=== PATIENT | male | born 1995 | race Caucasian/White ===

== ENCOUNTER 2020-05-02 09:26 | Emergency (ER) | payer OTHER, SELFPAY ==
[~2020-05-02] VITALS: Ht 172.7 cm; Wt 108.2 kg
[2020-05-02] MEDS ORDERED: ACETAMINOPHEN 500 MG TAB PO ONE (10:00)
[2020-05-02 10:19] VITALS: BP 131/81
--- NOTE | 2020-05-02 10:22 | REP ---
Right foot series: Four views. History: Midfoot pain. Third and fourth toe. Crush injury. Findings: Four views of the right foot demonstrate overall normal mineralization. The DIP joints of the third and fourth toes and fifth toes are developmentally fused. No fracture or subluxation is seen in the phalanges or metatarsals. No tarsal fracture is seen. Impression: No acute bony abnormality. Electronically Signed by Aime Stanton MD 05/02/2020 10:13 A
== END 2020-05-02 10:30 | disposition home or self-care (01) ==
LOC: M ED 09:26
DX: S90.31XA Contusion of right foot, initial encounter (principal); W20.8XXA Other cause of strike by thrown, projected or falling object, initial encounter; Y92.9 Unspecified place or not applicable; Y93.9 Activity, unspecified; Y99.0 Civilian activity done for income or pay; J45.909 Unspecified asthma, uncomplicated

== ENCOUNTER 2020-07-27 08:30 | Emergency (ER) | payer OTHER, SELFPAY ==
[~2020-07-27] VITALS: Ht 175.3 cm; Wt 109.8 kg
[2020-07-27 08:30] VITALS: BP 142/74
[2020-07-27] MEDS ORDERED: CYCL-707 PO (08:45)
[2020-07-27] MEDS ORDERED: NAPR-837 PO (08:45)
== END 2020-07-27 09:01 | disposition home or self-care (01) ==
LOC: M ED 08:30
DX: M62.830 Muscle spasm of back (principal)

== ENCOUNTER → 2022-08-26 | Outpatient (REF) ==
[~2022-08-26] MED LIST: CYCL-707 PO; NAPR-837 PO
[2022-08-27 09:08] LABS: HERPES ZOSTER, VARICELLA IgG <135 index (Immune >165); RUBEOLA IgG ANTIBODY >300.0 AU/mL (Immune >16.4)
== END ==
LOC: M LAB 09:31
PROVIDERS: ATTEND Nurse Practitioner Adult Health
DX: Z02.1 Encounter for pre-employment examination (principal)

== ENCOUNTER → 2022-11-06 | Outpatient (REF) ==
[2022-11-06 13:47] LABS: RSV AMPLIFICATION NEGATIVE (NEGATIVE)
== END ==
LOC: M LABSMTC 09:55
PROVIDERS: ATTEND Family Medicine
DX: Z20.818 Contact with and (suspected) exposure to other bacterial communicable diseases (principal)

== ENCOUNTER 2022-12-21 20:21 | Emergency (ER) | payer OTHER, SELFPAY ==
[~2022-12-21] VITALS: Ht 175.3 cm; Wt 119.6 kg
[2022-12-21 20:21] VITALS: BP 143/84
[2022-12-21] MEDS ORDERED: CEPH500C PO (21:44)
[2022-12-21] MEDS ORDERED: CEPHALEXIN 500 MG CAP PO ONE (21:45)
[2022-12-21 22:43] LABS: RSV AMPLIFICATION NEGATIVE (NEGATIVE)
== END 2022-12-21 22:11 | disposition home or self-care (01) ==
LOC: M ED 20:21
DX: J02.0 Streptococcal pharyngitis (principal); Z79.2 Long term (current) use of antibiotics

== ENCOUNTER 2023-02-04 09:36 | Emergency (ER) | payer MEDICAID ==
[~2023-02-04] VITALS: Ht 172.7 cm; Wt 121.3 kg
[~2023-02-04 09:36] MED LIST changes: +CEPH500C PO
[2023-02-04] MEDS ORDERED: CEPH500C PO (11:41)
[2023-02-04 11:50] VITALS: BP 161/101
== END 2023-02-04 11:52 | disposition home or self-care (01) ==
LOC: M ED 09:36
DX: J02.0 Streptococcal pharyngitis (principal)

== ENCOUNTER → 2023-07-03 | Outpatient (REF) | payer OTHER, MEDICAID ==
[2023-07-03 12:33] LABS: ALBUMIN 4.2 G/DL (3.2-5.2); ALKALINE PHOSPHATASE 65 U/L (46-116); ALT/SGPT 57 U/L (7.0-40); AST/SGOT 28 U/L (<34); BILIRUBIN,TOTAL 0.5 MG/DL (0.3-1.2); BLOOD UREA NITROGEN 13 MG/DL (9-23); CARBON DIOXIDE LEVEL 27 MMOL/L (20-31); CHLORIDE LEVEL 105 MMOL/L (98-107); CHOLESTEROL LEVEL 169 MG/DL (<200); CHOLESTEROL RISK RATIO 3.85 (<5); CREATININE FOR GFR 0.86 MG/DL (0.70-1.30); GLOMERULAR FILTRATION RATE > 60.0 (>60); GLUCOSE, FASTING 84 MG/DL (60-100); HDL CHOLESTEROL 43.8 MG/DL (>40); NON-HDL-C 125.2 MG/DL; SODIUM LEVEL 142 MMOL/L (136-145); TOTAL PROTEIN 7.1 G/DL (5.7-8.2); TRIGLYCERIDES LEVEL 171 MG/DL (<150)
[2023-07-03 12:38] LABS: THYROID STIMULATING HORMONE 1.831 uIU/ML (0.55-4.78)
[2023-07-03 13:03] LABS: HIV 1&2 SCREEN NEGATIVE (NEGATIVE)
== END ==
LOC: M LAB REF 11:36
PROVIDERS: ATTEND Family Medicine Addiction Medicine
DX: Z68.41 Body mass index [BMI] 40.0-44.9, adult (principal)

== ENCOUNTER → 2023-09-10 | Outpatient (REF) | LOC: M EMP 14:43 | PROVIDERS: ATTEND Family Medicine | DX: Z11.52 Encounter for screening for COVID-19 (principal) ==

== ENCOUNTER 2023-11-24 16:08 | Emergency (ER) | payer OTHER, MEDICAID ==
[~2023-11-24] VITALS: Ht 175.3 cm; Wt 122.9 kg
[2023-11-24] MEDS ORDERED: BUPR150T12 (16:25)
[2023-11-24 17:17] LABS: RSV AMPLIFICATION NEGATIVE (NEGATIVE)
[2023-11-25 00:41] VITALS: BP 144/73; TEMP 99.4; O2SAT 99
== END 2023-11-25 00:58 | disposition left against medical advice (07) ==
LOC: M ED 16:08
DX: Z53.21 Procedure and treatment not carried out due to patient leaving prior to being seen by health care provider (principal)

== ENCOUNTER 2023-12-21 15:48 | Emergency (ER) | payer MEDICAID, OTHER ==
[~2023-12-21] VITALS: Ht 175.3 cm; Wt 122.9 kg
[~2023-12-21 15:48] MED LIST changes: +BUPR150T12
[2023-12-21 22:18] VITALS: BP 172/99; TEMP 97.4; O2SAT 99
== END 2023-12-21 22:22 | disposition home or self-care (01) ==
LOC: M ED 15:48
DX: G56.02 Carpal tunnel syndrome, left upper limb (principal); M25.532 Pain in left wrist; J45.909 Unspecified asthma, uncomplicated; Y92.9 Unspecified place or not applicable; Y93.89 Activity, other specified; Y99.9 Unspecified external cause status; Z79.899 Other long term (current) drug therapy

== ENCOUNTER 2024-08-19 19:15 | Emergency (ER) | payer OTHER ==
[2024-08-19 20:12] LABS: BASO % 0.5 % (0.0-1.0); EOS # 0.3 10^3/uL (0.0-0.5); EOS % 4.2 % (0.0-3.0); HEMATOCRIT 40.5 % (42.0-52.0); HEMOGLOBIN 14.2 g/dl (13.5-17.5); LYMPH # 1.7 10^3/uL (1.5-5.0); LYMPH % 25.7 % (24.0-44.0); MEAN CORPUSCULAR HEMOGLOBIN 31.3 pg (27.0-33.0); MEAN CORPUSCULAR HGB CONC 35.1 g/dl (32.0-36.5); MEAN CORPUSCULAR VOLUME 89.2 fl (80.0-96.0); MONO # 1.2 10^3/uL (0.0-0.8); MONO % 18.5 % (2.0-8.0); NEUTROPHILS # 3.3 10^3/uL (1.5-8.5); NEUTROPHILS % 50.5 % (36.0-66.0); PLATELET COUNT, AUTOMATED 206 10^3/uL (150-450); RED BLOOD COUNT 4.54 10^6/uL (4.30-6.10); WHITE BLOOD COUNT 6.5 10^3/uL (4.0-10.0)
[2024-08-19 20:36] LABS: LIPASE 110 U/L (12-53)
[2024-08-19 21:31] LABS: ALBUMIN 3.8 G/DL (3.2-5.2); ALKALINE PHOSPHATASE 75 U/L (46-116); ALT/SGPT 77 U/L (7.0-40); AST/SGOT 58 U/L (<34); BILIRUBIN,DIRECT 0.2 MG/DL (<0.4); BLOOD UREA NITROGEN 11 MG/DL (9-23); CALCIUM LEVEL 9.5 MG/DL (8.5-10.1); CARBON DIOXIDE LEVEL 28 MMOL/L (20-31); CHLORIDE LEVEL 107 MMOL/L (98-107); CREATININE FOR GFR 0.82 MG/DL (0.70-1.30); GLOMERULAR FILTRATION RATE > 60.0 (>60); GLUCOSE, FASTING 97 MG/DL (60-100); POTASSIUM SERUM 4.2 MMOL/L (3.5-5.1); SODIUM LEVEL 141 MMOL/L (136-145)
[2024-08-19 21:44] LABS: BILIRUBIN,TOTAL 0.7 MG/DL (0.3-1.2)
[2024-08-19 21:51] VITALS: TEMP 96.8
[2024-08-20] MEDS ORDERED: ISOVUE-370 76% 100ML VIAL As Ordered ONE (03:22)
[2024-08-20] MEDS: KETOROLAC 30 MG/ML 1ML VIAL IV ONE (03:48)
[2024-08-20] MEDS: ONDANSETRON 4MG 2ML VIAL IV ONE (03:48)
[2024-08-20 06:00] VITALS: BP 119/74; O2SAT 98
[2024-08-20] MEDS ORDERED: KETO10TAB PO (06:31)
[2024-08-20] MEDS ORDERED: ONDA-282 PO (06:31)
== END 2024-08-20 06:40 | disposition home or self-care (01) ==
LOC: M ED 19:15
DX: K85.90 Acute pancreatitis without necrosis or infection, unspecified (principal); Z79.83 Long term (current) use of bisphosphonates; Z79.899 Other long term (current) drug therapy
CPT/HCPCS: 74177; 76705; 80048; 80076; 83690; 85025; 96374; 99284; J1885; J2405; Q9967